=== PATIENT | male | born 1985 | race Caucasian/White ===

== ENCOUNTER 2020-06-03 09:33 | Emergency (ER) | payer BC, SELFPAY ==
--- NOTE | 2020-06-03 10:07 | PC.NURSE ---
PATIENT TO NCC FROM REGISTRATION AT THIS TIME
[2020-06-03 10:21] VITALS: BP 124/70; PULSE 66; RESP 19; TEMP 36.8; O2SAT 98; BMI 33.2
--- NOTE | 2020-06-03 10:36 | HMH.EDUTC ---
[facility] [place] Disposition Clinical Impression: Exposure to COVID-19 virus Disposition: Home, Self-Care Condition on Discharge: Good Instructions: Preventing the Spread of Coronavirus Discharge Instructions Additional Instructions: You have been tested for COVID19. Please isolate yourself as if you are already positive. Referrals: Jose Miguel Manuel [Primary Care Provider] - Time of Disposition: 10:38 Medical Decision Making - Elmer Inquiry Pt receiving controlled substance: No Orders (Tests/Meds): ORDERS Category Date Time Status Covid-19 Nasal PCR ([facility]) Routine Lab 06/03/20 10:24 Ordered [facility] [place] HPI - General Stated complaint: Covid Test Time Seen by Provider: 06/03/20 10:36 - History of Present Illness Provider Complaint: and son tested positive for COVID19 last night. No fever. Denies ear pain, sore throat, shortness of breath, cough, vomiting, diarrhea. Onset (ago): day(s) (1) Relieving factors: none Exacerbating factors: none Associated symptoms: denies other symptoms Treatments prior to arrival: none [facility] History - Hepatitis A Screen Attestation statement:: This patient has been screened for Hepatitis A risk factors. ROS Obtained: Yes All systems reviewed & no additional complaints - Constitutional Constitutional: Denies body ache, Denies chills, Denies fever(s) - Eyes Eyes: Denies eye discharge - ENT Ears, Nose, Mouth, and Throat: Denies otalgia, Denies sinus pain - Cardiovascular Cardiovascular: Denies dyspnea - Gastrointestinal Gastrointestingal: Denies: diarrhea, vomiting Physical Exam - General General appearance: alert, in no apparent distress - Head Head exam: atraumatic, normocephalic, normal inspection - Eye Eye exam: Present: normal appearance, PERRL, EOMI - ENT ENT exam: Present: normal exam, normal oropharynx, mucous membranes moist, TM's normal bilaterally, normal external ear exam - Neck Neck exam: Present: normal inspection, full ROM, trachea midline. Absent: meningismus, lymphadenopathy - Chest Chest inspection: Present: normal inspection, symmetric chest wall rise. Absent: tenderness - Respiratory Respiratory exam: Present: normal lung sounds bilaterally. Absent: respiratory distress - Cardiovascular Cardiovascular exam: Present: regular rate, normal rhythm. Absent: JVD - Abdominal Exam Abdominal exam: Present: soft, normal bowel sounds. Absent: distention, tenderness, guarding - Extremities Exam Extremities exam: Present: normal inspection, full ROM, normal capillary refill. Absent: calf tenderness - Back Exam Back exam: Present: normal inspection. Absent: tenderness - Neurological Exam Neurological exam: Present: alert, oriented X3 - Psychiatric Psychiatric exam: Present: normal affect, normal mood - Skin Skin exam: Present: warm, dry, intact, normal color - Lymphatic Lymphatic Findings: no adenopathy
[2020-06-03 10:38] VITALS: BP 124/70; PULSE 66; RESP 19; TEMP 36.8; O2SAT 98
[2020-06-04 16:03] LABS: Covid-19 Nasal PCR Sendout Lex Not Detected
== END 2020-06-03 10:40 | disposition home or self-care (01) ==
PROVIDERS: Emergency Provider Physician Assistant; PCP Family Medicine
DX: Z20.828 Contact with and (suspected) exposure to other viral communicable diseases (principal)
CPT/HCPCS: 99201; U0004

== ENCOUNTER 2023-02-08 14:47 | Emergency (ER) | payer SELFPAY ==
[2023-02-08] VITALS (12 sets, daily range): BP systolic 107–139; BP diastolic 53–97; PULSE 57–86; RESP 12–18; TEMP 36.9; O2SAT 96–98; BMI 29.1
--- NOTE | 2023-02-08 14:47 | ECG_ITS ---
APPROVED REPORT Exam: Resting ECG HR:88 bpm ECG Measurements Heart Rate 88 AXES HI 152 P 48 QRSd 87 QRS -10 QT 330 T 14 QTc 375 Conclusion SINUS RHYTHM MINIMAL VOLTAGE CRITERIA FOR LVH, CONSIDER NORMAL VARIANT [MEETS CRITERIA IN ONE OF: R(aVL), S(V1), R(V5), R(V5/V6)+S(V1)] BORDERLINE ECG UNCONFIRMED REPORT Electronically signed by : Kevin Ambrocio MD 02/09/2023 15:04:06
--- NOTE | 2023-02-08 14:51 | PC.NURSE ---
Called [facility] to get records from visit 2 days ago
--- NOTE | 2023-02-08 14:59 | HMH.EDCP ---
Discharge Plan Disposition Patient Disposition: Home, Self-Care Condition: Good Prescriptions Prescriptions: New bisoprolol fumarate 10 mg tablet 10 mg PO DAILY Qty: 30 0RF Referrals Follow up/Referrals: Jose Miguel Manuel [Primary Care Provider] - See instructions Manolo Dumont MD [Staff Physician] - See instructions (Follow-up with Dr. Dumont this coming Saturday at 11 AM.) Activity Restrictions/Add. Instructions Additional Instructions/Restrictions: Take a low-dose 81 mg aspirin daily until evaluated by the library manager Clinical Impressions Clinical Impression: Chest pain Stand Alone Forms Stand Alone Forms: Work/School Release Discharge ED Provider: Brendon Cadena Chest Pain HPI General Chief Complaint: Chest Pain Stated Complaint: chest pain Time Seen by Provider: 02/08/23 14:51 History of Present Illness HPI narrative: Patient presents with intermittent chest pain for the last 2 to 3 days. He states the pain is presently mild and states it tends to be worse when he is supine. He does note associated clamminess as well as nausea and some dyspnea. He does have a history of high blood pressure and a former history of tobacco use. Related Data Previous Rx's Medication Instructions Recorded bisoprolol fumarate 10 mg tablet 10 mg PO DAILY #30 tabs 02/08/23 Allergies Allergy/AdvReac Type Severity Reaction Status Date / Time No Known Allergies Allergy Verified 06/03/20 10:44 [facility] Disclaimer: The information contained in this section may have been updated after the patient was seen, as this information can be updated by other users. Social History Smoking Status: Never smoker alcohol intake: never current occupational status: other Travel in the last 8 weeks: None ROS Obtained: Yes All systems reviewed & no additional complaints except as documented Physical Exam General General appearance: alert and in no apparent distress Head Head exam: atraumatic, normocephalic and normal inspection Eye Eye exam: Present normal appearance, PERRL and EOMI ENT ENT exam: Present normal exam, normal oropharynx, mucous membranes moist, TM's normal bilaterally and normal external ear exam Neck Neck exam: Present normal inspection, full ROM and trachea midline; Absent meningismus or lymphadenopathy Chest Chest inspection: Present normal inspection and symmetric chest wall rise; Absent tenderness Respiratory Respiratory exam: Present normal lung sounds bilaterally; Absent respiratory distress Cardiovascular Cardiovascular exam: Present regular rate and normal rhythm; Absent JVD Abdominal Exam Abdominal exam: Present soft and normal bowel sounds; Absent distention, tenderness or guarding Extremities Exam Extremities exam: Present normal inspection, full ROM and normal capillary refill; Absent calf tenderness Back Exam Back exam: Present normal inspection; Absent tenderness Neurological Exam Neurological exam: Present alert and oriented X3 Psychiatric Psychiatric exam: Present normal affect and normal mood Skin Skin exam: Present warm, dry, intact and normal color Lymphatic Lymphatic Findings: no adenopathy Medical Decision Making Medical Records Medical records reviewed: Yes I reviewed the patient's medical records. Elmer Inquiry Pt receiving controlled substance: No Elmer was queried for this patient: No Vital Signs: 02/08/23 14:46 02/08/23 15:00 02/08/23 15:30 Temperature 98.5 F Temperature Source Oral Pulse Rate 84 76 Pulse Rate [Right] 86 Respiratory Rate 16 18 18 Blood Pressure 139/86 128/81 Blood Pressure [Right Arm] 136/97 H Blood Pressure Mean 103 95 Blood Pressure Mean [Right Arm] 110 Blood Pressure Source [Right Arm] Automatic Cuff Blood Pressure Position [Right Arm] Sitting 02 Sat by Pulse Oximetry 97 96 96 Oxygen Delivery Method Room Air 02/08/23 16:00 02/08/23 17:00 02/08/23 17:16
--- NOTE | 2023-02-08 15:01 | XR_ITS ---
FINAL REPORT CLINICAL HISTORY: cp FINDINGS: SINGLE VIEW CHEST The heart size is normal. The mediastinum is normal. The lungs are clear. There is no pneumothorax. IMPRESSION: No acute cardiopulmonary process. Reviewed, Interpreted and Dictated by Yosvany Gonzalez III, MD Transcribed by Matthew Kaba Authenticated and [facility]
--- NOTE | 2023-02-08 15:05 | PC.NURSE ---
rad at BS for portable xray
[2023-02-08 15:11] LABS: Basophils % 0.4 % (0.1-2.0); Chloride 98 mmol/L (98-107); Eosinophils # 0.2 K/mm3 (0.0-0.4); Eosinophils % 2.1 % (0.1-12.0); Hematocrit 54.7 % (42.0-52.0); Lymphocytes # 2.2 K/mm3 (0.7-4.5); Lymphocytes % 25.2 % (10-50); Mean Corpuscular HGB Conc 33.6 g/dL (31.8-35.4); Mean Corpuscular Hemoglobin 28.7 pg (27.0-31.2); Mean Corpuscular Volume 85.4 fl (80-94); Mean Platelet Volume 7.6 fl (7.4-10.4); Monocytes # 0.6 K/mm3 (0.1-1.0); Monocytes % 6.2 % (1.7-9.3); Neutrophils # 5.9 K/mm3 (1.8-7.8); Neutrophils % 66.1 % (37.0-80.0); Platelet Count 250 K/mm3 (142-424); Red Blood Count 6.41 M/mm3 (4.60-6.20); Red Cell Distribution Width 13.4 % (11.5-17.5); Sodium 136 mmol/L (136-145); White Blood Count 8.9 K/mm3 (4.8-10.8)
[2023-02-08 15:12] LABS: Potassium 4.4 mmoL/L (3.5-5.1)
[2023-02-08 15:14] LABS: Alanine Aminotransferase 32 U/L (12-78); Aspartate Amino Transferase 35 U/L (17-59); Blood Urea Nitrogen 16 mg/dl (9-20); Creatinine Clearance Estimated 135 mL/min (50-200); Estimated Glomerular Filt Rate 83 ml/min (>60); GFR (African American) 100 ML/MIN (>60)
[2023-02-08 15:15] LABS: Albumin Level 5.2 g/dl (3.5-5.0); Albumin/Globulin Ratio 1.4 (1.1-1.8); Alkaline Phosphatase 81 U/L (38-126); Anion Gap 17.4 mEq/L (5-15); Bilirubin,Total 0.5 mg/dl (0.2-1.3); Calcium 9.6 mg/dl (8.4-10.2); Carbon Dioxide 25 mmol/L (22.0-30.0); Globulin 3.6 g/dL (1.3-3.2); Glucose 90 mg/dl (74-100); Total Protein,Serum 8.8 g/dl (6.3-8.2)
[2023-02-08 15:28] LABS: Troponin I < 0.01 ng/ml (0.00-0.034)
--- NOTE | 2023-02-08 16:05 | PC.NURSE ---
ERIC MCDONNELL spoke with Dr. Dumont.
--- NOTE | 2023-02-08 16:19 | PC.NURSE ---
Vascular at bedside for echo
--- NOTE | 2023-02-08 16:25 | PC.NURSE ---
US @ BS for ECHO
--- NOTE | 2023-02-08 17:03 | PC.NURSE ---
Rounded on patient and ; gave Dr. ruano. Nothing else needed at this time
[2023-02-08 17:50] LABS: Troponin I < 0.01 ng/ml (0.00-0.034)
--- NOTE | 2023-02-08 17:51 | PC.NURSE ---
contacted lab to check on status of troponin results, lab staff releasing it now.
== END 2023-02-08 19:16 | disposition home or self-care (01) ==
PROVIDERS: Emergency Provider Emergency Medicine; PCP Family Medicine
DX: R07.9 Chest pain, unspecified (principal); R11.0 Nausea; I10 Essential (primary) hypertension; Z87.891 Personal history of nicotine dependence
CPT/HCPCS: 71045; 80053; 84484; 85025; 93005; 93306; 96374; 96375; 99285